=== PATIENT | female | born 1950 | race Caucasian/White ===

== ENCOUNTER 2016-08-18 05:39 | Inpatient (IN) | payer MEDICARE, OTHER ==
[2016-07-20] MEDS: Lactated Ringer's 1,000 ML IV SCH (13:04)
[2016-07-21] MEDS: Sodium Chloride LOK Flush 10 mL Syringe IVFLUSH SCH ×2 (00:30→08:30)
[2016-07-21] MEDS: Lactated Ringer's 1,000 ML IV SCH (01:34)
[2016-08-18] VITALS (18 sets, daily range): BP systolic 111–166; BP diastolic 44–91; PULSE 43–98; RESP 10–19; O2SAT 94–100
[~2016-08-18] VITALS: Ht 162.6 cm; Wt 105.7 kg
[2016-08-18] MEDS: Lactated Ringer's 1,000 ML IV SCH ×3 (05:00→07:24)
[~2016-08-18 05:39] MED LIST: ACET325T51 PO; ACYC400T2 PO; ASPI-973 PO; CeFAZolin Inj 2 GM in IV Premix 1 EACH IV SCH; DICL75TA6 PO; FEXO180T85 PO; LEVO75TA4 PO; MULT-1018 PO; TRAZ-115 PO; Vancomycin Dose per Pharmacist XX ONE; vit b complex PO; vit c PO
[2016-08-18] MEDS ORDERED: CeFAZolin 2 Gm/50 mL D5W IV Premix IV ONE (06:00)
[2016-08-18] MEDS ORDERED: Vancomycin Inj 1,000 MG in IV Premix 1 EACH IV ONE (06:00)
[2016-08-18] MEDS ORDERED: Ropivacaine-PF 0.5% 30 mL Inj INFILTRATE ONE (07:30)
[2016-08-18] MEDS ORDERED: Atropine 0.4 mg/mL Inj IVPUSH PRN (08:15)
[2016-08-18] MEDS ORDERED: EPHEDrine Sulfate 50 mg/mL Inj IVPUSH PRN (08:15)
[2016-08-18] MEDS ORDERED: Dexamethasone 4 mg/mL Inj IVPUSH PRN (08:15)
[2016-08-18] MEDS ORDERED: hydrALAZINE 20 mg/mL Inj IVPUSH PRN (08:15)
[2016-08-18] MEDS ORDERED: Phenylephrine 10,000 mCg/mL Inj IVPUSH PRN (08:15)
[2016-08-18] MEDS ORDERED: MetoCLOpramide 5 mg/mL 2 mL Inj IVPUSH PRN (08:15)
[2016-08-18] MEDS ORDERED: fentaNYL-PF 50 mCg/mL 2 mL Inj IVPUSH PRN (08:15)
[2016-08-18] MEDS ORDERED: Lactated Ringer's 500 ML IV PRN (08:15)
[2016-08-18] MEDS ORDERED: Lactated Ringer's 1,000 ML IV SCH (08:15)
[2016-08-18] MEDS ORDERED: Labetalol 5 mg/mL 4 mL Inj IV PRN (08:15)
--- NOTE | 2016-08-18 08:17 | PCM.HPANE ---
Patient Data Surgeon Admitting Provider: Attending Provider:Blue San DO Primary Care Physician:Tigist Minaya PA-C Other Provider:Wilfrid Max Anesthesia Reason for Visit Right Hip Arthritis Ht/WT & BMI Height (Feet): 5 Height (Inches): 4.00 Weight (Kilograms): 105.7 Body Mass Index 39.00 Allergies Coded Allergies: codeine (Verified Adverse Reaction, Severe, VOMITING, 02/26/16) latex (Verified Adverse Reaction, Severe, ITCHING, 02/26/16) Past Anesthesia History Anesthesia History: Denies:: Anesthesia Reactions, Malignant Hyperthermia Diabetes History Hx Diabetes?: No MRSA MRSA: No Medications Blood Thinner: Aspirin Home Meds Incl Beta Esvin: No Reported Medications Acetaminophen 325 Mg [id number] Mg PO Q4H PRN For Fever Ref 0 08/14/16 Diclofenac ER 75 Mg [id number] Mg PO BID 08/14/16 Aspirin 81 Mg [id number] Mg PO DAILY Ref 0 08/14/16 [vit c] No Conflict Check Po Daily 03/02/16 [vit b complex] No Conflict Check Po Daily 03/02/16 Multivitamin (Multi Vitamin Daily)1 Each Tablet1 Each PO DAILY 30 Days Ref 0 03/02/16 Fexofenadine (Sally Allergy)180 Mg [id number] Mg PO DAILY PRN PRN Ref 0 02/26/16 Acyclovir 400 Mg [id number] Mg PO TID X 7 DAYS PRN PRN Ref 0 02/26/16 Trazodone 50 Mg [id number] Mg PO HS PRN PRN Ref 0 02/26/16 Levothyroxine 75 Mcg [id number] Mcg PO DAILY Ref 0 02/26/16 History History of ENT Problems?: Yes HEENT History: Positive for:: Sinus Problem (ENVIRONMENTAL ALLERGIES) Denies:: Hearing Problem (S/P EXC CHOLESTOMA X3) Hx of Heart Problems?: Yes Cardiovascular History: Denies:: Hypertension Hx of Respiratory Problem?: Yes Respiratory History: Denies:: Use of C-PAP Machine (SNORES) Hx Neurologic Problems?: Yes Hx of GI Problems?: No Hx of Problems?: No Female Hx: Positive for:: Problems with Breasts? (S/P RT BREAST BX,LUMPECTOMY FOR CA) Denies:: Currently Pelvic Inflammatory (HX HERPES LABIALIS) Skin History: Denies:: History Skin Disorders? Pressure Ulcers Hx Musculoskeletal Problems?: Yes Musculoskeletal History: Positive for:: Degenerative Joint (LT KNEE, R HIP) Joint Replacement (L KNEE, R HIP 08/25) Osteoarthritis Hx of Psycho/Social Problems?: No Hx Surgeries?: Yes (BTL,RT BREAST BX/LUMPECTOMY,EXC CHOLESTOMA EAR X3) Hx Any Other Health Problems?: Yes Other History: Positive for:: Cancer (RT BREAST) Thyroid Disease Denies:: Endocrine Disease Hospitalization History Blood Transfusions: Denies:: Blood Transfusions Hx Diabetes: No Hx Alcohol Use: Yes ("SOCIAL") Smoking Status: Never Smoker Have You Smoked inLast 12 mo: No Stop/Bang S-Snoring: Do You Snore Loudly: Yes T-Tired: feel tired, fatigued: Yes O-Obsered: Observed not breath: No P-Blood Pressure: treated: No B- Body Mass Index > 35 kg/m2: Yes A- Age over 50: Yes N- Neck Large Circumference: Yes G- Gender Male: No JOANNE Total Score: 5 JOANNE Category 2: Yes Risk Assessment Category Category 1A: Patient has history of documented sleep apnea, and HAS NOT received any narcotic, sedative or anesthesia administration during this stay. Category 1B: Patient has history of documented sleep apnea, and HAS received any narcotic , sedative or anesthesia administration during this stay Category 2: Patient has SUSPECTED Obstructive Sleep Apnea, and HAS received any narcotic , sedative or anesthesia administration during this stay. Category 3: Patient has SUSPECTED Obstructive Sleep Apnea and HAS NOT received narcotic, sedative or anesthesia administration during this stay. Category 4: Outpatient in Procedural Areas with known sleep apnea or who screen positive for High Risk via the STOP/BANG questionnaire. Exam Exam Vital Signs Vital Signs Date Time Temp Pulse Resp B/P Pulse Ox O2 Delivery O2 Flow Rate FiO2 08/18/16 06:13 36.7 61 16 148/82 96 Room Air General Appearance: Alert, Oriented X3, Cooperative, No Acute Distress HEENT/AIRWAY: MP 2, Neck Movement (FROM), Mouth Opening (3 FBMO) Lungs: Normal Air Movement Heart: Regular Rate/Rhythm Meds/Labs/Diagnostics Admission Meds Current Medications Lactated Ringer's 1,000 ml @ 10 mls/hr Q24H IV Last administered on 08/18/16t 05:13; Start 08/18/16 at 05:00; Stop 08/22/16 at 08:59 Vancomycin HCl/ Dextrose/Premix (Vancomycin Inj/ IV Premix) 200 ml @ 133.333 mls/hr OT ONCE IV Last administered on 08/18/16t 06:58; Start 08/18/16 at 06: 00; Stop 08/18/16 at 07:29 Plan Impression Patient chart reviewed, patient interviewed and anesthestic plan with risks, benefits, and alternatives discussed, and informed consent obtained. NPO Status: 08/17 at 1999 ASA Physical Status: ASA3 Severe Disease Anesthetic Plan: SAB Bene/Risks/Altern/Consents: Yes HP Complete Prior to Induction: Yes Other BMI 40 Blue Hurley MD Aug 18, 2016 07:07
[2016-08-18] MEDS ORDERED: Lactated Ringer's 1,000 ML IV ONE ×2 (09:12→12:08)
[2016-08-18] MEDS ORDERED: Polyethylene Glycol (PEG) 17 Gm Powder PO PRN (09:50)
[2016-08-18] MEDS ORDERED: Ondansetron 2 mg/mL 2 mL Inj IVPUSH PRN (09:50)
[2016-08-18] MEDS ORDERED: Magnesium Hydroxide 10 mL Oral Concentration PO PRN (09:50)
[2016-08-18] MEDS ORDERED: diphenhydrAMINE 25 mg Capsule PO PRN (09:50)
[2016-08-18] MEDS ORDERED: HYDROcodone-APAP 7.5-325 mg Tablet PO PRN (09:50)
[2016-08-18] MEDS ORDERED: HYDROmorphone 1 mg/mL Inj IVPUSH PRN (09:50)
[2016-08-18] MEDS: Ondansetron 2 mg/mL 2 mL Inj IVPUSH PRN ×2 (10:20→10:44)
--- NOTE | 2016-08-18 10:26 | OP ---
[address] [address] OPERATIVE REPORT PATIENT: RANDI SORIA : 1950 MR#: [id number] ADMIT: 08/18/2016 JOB ID: [id number] DATE OF SURGERY: 08/18/2016 PREOPERATIVE DIAGNOSIS(ES): Right hip degenerative joint disease. POSTOPERATIVE DIAGNOSIS(ES): Right hip degenerative joint disease. PROCEDURE: Right total hip arthroplasty. SURGEON: Blue San DO. AUTOMATION TECHNOLOGIST: Cony Arreaga PA-C. INDICATIONS: The patient is a 65-year-old female with right hip severe degenerative arthritis who had failed conservative measures and wished to proceed with a right total hip arthroplasty. We discussed the risks, benefits, and possible complications of surgery, including, but not limited to injury to nerves and vessels, infection, bleeding, incomplete relief of symptoms, stiffness, need for additional procedures. All questions were answered and she wished to proceed. A special education assistant was required for the successful completion of this procedure. PROCEDURE IN DETAIL: The patient was brought to the operating room. She was given a preoperative antibiotic and spinal anesthetic, placed comfortably into the lateral decubitus position. The right hip was sterilely prepped and draped. An incision was made centered over the greater trochanter in line with the femur. Dissection was carefully carried through subcutaneous tissue. Electrocautery was used for hemostasis. A split was then made in the iliotibial band in line with the skin incision and a Charnley retractor was then placed. A split was then made in the gluteus medius between the junction of the anterior 1/3 and posterior 2/3, and the anterior sleeve of tissue was released off of the trochanter leaving a cuff of tissue for repair. This was taken to a point just distal to vastus tubercle. A small triangular portion of capsule was then removed and the hip was then surgically dislocated. A provisional neck cut was made about a fingerbreadth above the level of lesser trochanter. Next, the femur was prepared beginning with a box osteotome and the canal seeker. This was then broached sequentially up to a size 4, which had excellent fit and fill. A calcar planer was used to smooth the top of the femur. Attention was then directed towards the acetabulum. Anterior and posterior acetabular retractors were placed at the 3 o'clock and 9 o'clock positions, respectively. Next, the pulvinar was removed and the labrum was also removed. The hip was then reamed sequentially up to a size 51 taking care to ensure the appropriate abduction and anteversion. A 51 trial was placed. It seemed to fit quite nicely and therefore, we elected to place a DePuy [place] 52 cup. The bony surfaces washed and dried. The cup was impacted into position, further secured with a single superior dome screw. Trials were then performed with the 52 + 4 liner and 4 stem with a 36 + 1.5 head. This seemed to recreate her [place] anatomy quite nicely, allowed for full excellent range of motion with great stability and some shuck with equal leg lengths. These components were impacted into position with the Tri-Lock size 4 standard stem and a 36 + 1.5 ceramic head with a 36 x 52 Ultrex liner. The wound was irrigated and then closed with #5 Ethibond to repair the capsule and to repair the gluteus medius. The remainder of the gluteus medius and vastus lateralis repaired with #1 Surgilon. The iliotibial band was repaired with #1 Surgilon and 0 Vicryl. The subcu was closed with 2-0 Vicryl and V-Loc, and the skin was closed with a subcuticular 3-0 V-Loc suture with Steri-Strips. Naropin was added as an adjunct local anesthetic. Sterile dressings were applied. The patient tolerated the procedure well. Blood loss was 150 cc. POSTOPERATIVE PROTOCOL: Will have the patient weight bear to tolerance, use a walker for ambulation. Will plan to use Lovenox for DVT prophylaxis and Swink for pain.
--- NOTE | 2016-08-18 10:39 | DRSVH ---
PROCEDURE: X-RAY PELVIS W/LAT HIP (RT) ([id number]) INDICATIONS: post op TECHNIQUE: AP pelvis and lateral view of the right hip acquired. COMPARISON: [facility], , XR PELVIS W LATERAL HIP RT, 07/20/2016, 10:17. FINDINGS: Bones: Patient is status post right hip arthroplasty, with hardware components in expected positions . The hip joint appears congruent. The visualized bony structures appear intact. Soft tissues: Overlying postoperative changes are noted. No suspicious soft tissue densities. IMPRESSION: Interval right hip arthroplasty. Dictated by: Cielo West M.D. on 08/18/2016 at 10:37 Approved by: Cielo West M.D. on 08/18/2016 at 10:37
[2016-08-18 11:00] LABS: APPEARANCE,URINE CLEAR (CLEAR,HAZY); COLOR,URINE STRAW (YELLOW)
[2016-08-18 11:01] LABS: OCCULT BLOOD,URINE NEGATIVE (NEGATIVE); PH,URINE 6.5 (5.0-8.0); UROBILINOGEN,URINE NORMAL (NORMAL)
[2016-08-18] MEDS ORDERED: hydrOXYzine Inj 25 MG/1 mL SDV IM ONE ×3 (11:15→13:30)
--- NOTE | 2016-08-18 11:16 | PCM.ANEP1 ---
Post Anesthesia Phase 1 PACU Phase 1 Assessment Vital Signs Vital Signs Date Time Temp Pulse Resp B/P Pulse Ox O2 Delivery O2 Flow Rate FiO2 08/18/16 11:00 15 98 08/18/16 10:45 46 16 143/67 98 Room Air 08/18/16 10:30 43 14 149/73 96 Room Air 08/18/16 10:20 19 97 08/18/16 10:15 57 10 115/44 98 Room Air 08/18/16 10:10 61 14 124/70 98 Room Air 08/18/16 10:05 68 13 111/79 99 Room Air 08/18/16 10:00 36 70 15 127/60 100 Simple Mask 9 08/18/16 06:13 36.7 61 16 148/82 96 Room Air Anesthetic Administered: SAB Level of Alertness: Awake, talking SOOD's with Equal Strength: No (SAB still working) Pain: No Nausea or Vomiting: No Oxygen Delivery: Room Air Lungs: Normal Air Movement Dermatome Level: T12 (Symphysis Pubis) Blue Hurley MD Aug 18, 2016 11:16
--- NOTE | 2016-08-18 11:17 | PCM.ANEP2 ---
Post Anesthesia Evaluation ASA/CMS Post Anesthesia VS in Patient's Normal Range?: Yes Resp Stable; Airway Patent?: Yes CV Function & Hydration Stable: Yes Mental Status Recovered?: Yes Pain control Satisfactory?: Yes N/V Control Satisfactory?: Yes Blue Hurley MD Aug 18, 2016 11:17
[2016-08-18] MEDS: Sodium Chloride LOK Flush 10 mL Syringe IVFLUSH SCH (12:59)
[2016-08-18] MEDS: 0.9% Sodium Chloride 1,000 ML IV SCH ×2 (12:59→23:47)
[2016-08-18] MEDS: Ketorolac 15 mg/mL Inj IVPUSH PRN ×2 (13:17→19:45)
[2016-08-18] MEDS: Sodium Chloride LOK Flush 10 mL Syringe IV SCH (13:17)
--- NOTE | 2016-08-18 13:30 | NUR ---
POST-OP Patient received from PACU via a hospital bed. On room air. IVF ongoing. Complained of headache and nausea. Toradol IVP and Zofran 4 mg IVP administered. Denies SOB. RLE is tingly. Post spinal anesthesia. She is able to wiggle her toes. Dressing is CDI. IFC intact and draining to rigoberto colored UO. Oriented to room and call light. (Pls. refer to post-op grid for assessments).
[2016-08-18] MEDS ORDERED: fentaNYL-PF 50 mCg/mL 2 mL Inj ONE (13:37)
[2016-08-18] MEDS ORDERED: Phenylephrine 10,000 mCg/mL Inj ONE (14:29)
[2016-08-18] MEDS ORDERED: Propofol 10,000 mCg/mL 20 mL Inj ONE (14:29)
[2016-08-18] MEDS ORDERED: Bupiv-Spinal 0.75%/Dex 8.25% 2 mL Inj ONE (14:29)
[2016-08-18] MEDS: hydrOXYzine Pamoate 25 mg Capsule PO PRN (15:49)
[2016-08-18] MEDS ORDERED: Acyclovir 400 mg Tablet PO PRN (16:45)
[2016-08-18] MEDS: CeFAZolin Inj 2 GM in IV Premix 1 EACH IV SCH (17:15)
[2016-08-18] MEDS: Senna-Docusate 8.6-50 mg Tablet PO SCH (19:44)
[2016-08-19] MEDS: Sodium Chloride LOK Flush 10 mL Syringe IV SCH ×3 (00:30→18:07)
[2016-08-19] MEDS: CeFAZolin Inj 2 GM in IV Premix 1 EACH IV SCH (00:48)
--- NOTE | 2016-08-19 04:51 | NUR ---
Pain Pt remains in bed throughout shift, SCD bilaterally, foam wedge in place. No complaints of N/V, SOB, headache, or chest pain. Dilauded and toradol given for breakthrough pain when PO meds not available. Pt sleeping soundly and no further requests for pain medication. IV running NS at 100 ml/h. Will continue to monitor
[2016-08-19 05:27] VITALS: BP 128/72; PULSE 73; RESP 16; O2SAT 97
[2016-08-19] MEDS: 0.9% Sodium Chloride 1,000 ML IV SCH ×2 (05:50→15:50)
[2016-08-19 06:32] LABS: BASOPHILS % (AUTO) 0.1 % (0-3); EOSINOPHILS % (AUTO) 0.3 % (0-5); MONOCYTES % (AUTO) 17.7 % (4-12); Mean Corpuscular Hemoglobin 32.1 pg (27.0-35.0); Mean Corpuscular Volume 94.9 fL (81-100); NEUTROPHILS % (AUTO) 64.2 % (40-74); Platelet Count 256 bil/L (150-400)
--- NOTE | 2016-08-19 07:17 | PCM.PNORTH ---
Subjective Date of Service: Aug 19, 2016 Visit Information: Reason for Visit Right Hip Arthritis Surgery/Surgery Date RIGHT TOTAL HIP 08/18/16 Post-Op Day # Date of Admission: Aug 18, 2016 at 12:49 Hospital Day # Subjective Foundation awake and alert and sitting up in bed. No complaints of pain at this time. Patient is well positioned with abduction wedge in place. Discussed patient's performance with physical therapy and encouraged patient to get up today with physical therapy and pursue some gait with her frontwheel walker. Patient indicates she is going home to a relative's house initially were there are no steps and there is a 1 [address] present. Patient will ultimately go to her home with spouse as caregiver. Advised regarding discharge to home on postop day 3 and patient is understanding of this. Patient is very positive about her recent experience with her left knee surgery here at this hospital and is looking forward to a good course and a discharge to home on postop day 3. Postop General: No Complaints, No Shortness of Breath, No Chest Pain Pain Management: PO, IV Push Objective Exam Objective Orientation: Alert and oriented 3 and pleasant. Dressing: Interoperative dressing clean dry and intact. Wound: Wound not observed today Compartments: Thigh and calf are soft and nontender Mobility/sensation: Toe wiggle and sensation are intact in right lower extremity distally. Abduction wedge is in place. Addison: Present Drain: Absent Gait: Sit to stand with physical therapy yesterday on 08/18/2016. No gait yet as of this time. Vital Signs and I/O Vital Sign - Last Date Time Temp Pulse Resp B/P Pulse Ox O2 Delivery O2 Flow Rate FiO2 08/19/16 05:27 36.7 73 16 128/72 97 Nasal Cannula 2.00 Intake and Output 08/18/16 08/18/16 08/19/16 Cumulative From/Thru 15:00 23:00 07:00 07/21/16 16:16 - 08/19/16 06:45 Intake Total 2900 ml 1154 ml 2002 ml 6056 ml Output Total 525 ml 900 ml 1350 ml 2775 ml Balance 2375 ml 254 ml 652 ml 3281 ml Intake Oral 1154 ml 800 ml 1954 ml IV Total 2900 ml 1202 ml 4102 ml Output Urine Total 375 ml 900 ml 1350 ml 2625 ml Estimated Blood Loss 150 ml 150 ml # Bowel Movements 0 0 Lab & Micro Results Laboratory Tests Test 1/10/17 10:10 08/19/16 05:00 08/19/16 05:42 Urine Color Straw (YELLOW) Urine Appearance Clear (CLEAR,HAZY) Urine pH 6.5 (5.0-8.0) Urine Specific [place] 1.020 (1.003-1.035) Urine Protein Negativemg/dL (NEG,TRACE) Urine Glucose (UA) Negativemg/dL (NEGATIVE) Urine Ketones Negativemg/dL (NEGATIVE) Urine Occult Blood Negative (NEGATIVE) Urine Nitrite Negative (NEGATIVE) Urine Bilirubin Negative (NEGATIVE) Urine Urobilinogen Normalmg/dL (NORMAL) Urine Leukocyte Esterase Negative (NEGATIVE) Urine RBC 0-2/hpf (0-2) Urine WBC 0-5/hpf (0-5) Urine Epithelial Cells Occasional/hpf (NONE-MOD) Urine Crystals None seen (NONE SEEN) Urine Bacteria Few/hpf (NONE-FEW) Urine Hyaline Casts None/lpf (NONE) Urine Granular Casts None seen (NONE SEEN) Urine Waxy Casts None seen (NONE SEEN) Urine Red Blood Cell Casts None seen (NONE SEEN) Urine White Blood Cell Casts None seen (NONE SEEN) Urine Mucus Present (None Seen) Urine Trichomonas None seen (NONE SEEN) Urine Yeast None (NONE SEEN) Urinalysis Comment None Urine Culture Reflexed Not indicated White Blood Count 8.0th/mm3 (3.8-10.1) Red Blood Count 3.33mil/mm3 (3.90-5.20) Hemoglobin 10.7g/dL (12.0-15.6) Hematocrit 31.6% (35.0-46.0) Mean Corpuscular Volume 94.9fL (81-100) Mean Corpuscular Hemoglobin 32.1pg (27.0-35.0) Mean Corpuscular Hemoglobin Concent 33.9% (32.0-37.0) Red Cell Distribution Width 13.0% (12.3-15.4) Platelet Count 256bil/L (150-400) Neutrophils (%) (Auto) 64.2% (40-74) Lymphocytes (%) (Auto) 17.6% (14-46) Monocytes (%) (Auto) 17.7% (4-12) Eosinophils (%) (Auto) 0.3% (0-5) Basophils (%) (Auto) 0.1% (0-3) Sodium Level 139mEq/L (134-144) Potassium Level 4.1mEq/L (3.5-5.2) Chloride Level 105mEq/L (97-108) Carbon Dioxide Level 23mmol/L (18-29) Blood Urea Nitrogen 11mg/dL (8-27) Creatinine 0.40mg/dL (0.57-1.00) Estimat Glomerular Filtration Rate 229mL/min (>59) Glucose Level 125mg/dL (60-99) Calcium Level 8.5mg/dL (8.5-10.1) General Appearance: Alert, Oriented X3, Cooperative, No Acute Distress Extremities: No Compartment Syndrom Noted, Thigh & Calf Soft/Nontender Postop Sensory Motor: Distal Motor Intact, Movement in Toes, Distal Sensation Intact Activity: Activity per PT, Ambulate with PT (weightbearing as tolerated on the right lower extremity using front-wheeled walker.) Catheters: Urethral 2 Way Addison Assessment & Plan Plan Postop day # 1 from right total hip arthroplasty performed on 08/18/[address] Blue San. Weight bearing status: Weightbearing as tolerated on the right lower extremity Mobility aid: Front-wheeled walker Immobilization: None Precautions: Maintain abduction wedge between knees while in bed Physical therapy: Continue formal physical therapy for mobility, gait and safety. Pain control: Continue by mouth pain medications only if possible. Anticipated discharge medication is [place] 7.5. DVT prophylaxis: Continue Lovenox 40 mg subcutaneous daily 3 weeks postop with transition to ASA 3 25 mL by mouth twice a day for an additional 3 weeks postop totaling 6 weeks postoperative DVT prophylaxis. Wound care: Keep wound clean and dry and covered until seen in office in 2 weeks. Infectious DZ: None Addison: Present and working Dressing: Interoperative dressing is clean dry and intact. Drain: Absent Nursing: Nursing please discontinue Addison today on postop day 1 after her first therapy session. Use BSC if needed and safe mobility is achieved. 2-week follow-up: Follow-up in 2 weeks at [facility] on prearranged appointment with mid-level provider for wound check and suture removal. 6-week follow-up: Follow-up in 6 weeks at [facility] on prearranged appointment with Dr. Picco with AP pelvis and right crosstable lateral hip x-rays on arrival. Discharge plan: Anticipate discharge to a relative's home on postop day #3, . VTE Prophylaxis: Sub-Q Enoxaparin (Lovenox 40 mg subcutaneous daily 3 weeks postop with transition to ASA 325 mg EC by mouth twice a day for an additional 3 weeks postop totaling 6 weeks postoperative DVT prophylaxis.), SCDs ( bilateral SCDs while in bed.), KARLA Hose (bilateral thigh-high KARLA hose if sizing is available.) Jostin Reese PA-C Aug 19, 2016 07:17
[2016-08-19] MEDS: hydrOXYzine Pamoate 25 mg Capsule PO PRN ×4 (09:36→21:41)
[2016-08-19] MEDS: Senna-Docusate 8.6-50 mg Tablet PO SCH ×2 (09:36→21:41)
[2016-08-19 10:05] VITALS: BP 143/75; PULSE 74; RESP 18; O2SAT 98
[2016-08-19 14:08] VITALS: BP 130/70; PULSE 94; RESP 18; O2SAT 94
[2016-08-19 16:50] VITALS: BP 132/69; PULSE 86; RESP 18; O2SAT 96
--- NOTE | 2016-08-19 18:20 | NUR ---
Addison/Pain/Activity Pt's Addison removed at 1015 and pt able to void 200cc at 1100. Pain well controlled all day with PO medications Q4-5 hours, pt using call light when ready for medication. Pt able to get up with PT and staff to use restroom and understands hip precautions. Educated on using call light when needed to get up. Pt desats to low 90's when sleeping, so placed on 2L NC when sleeping. Sating fine on RA while awake. Pt has call light in reach, continue to monitor.
[2016-08-19 20:56] VITALS: BP 124/72; PULSE 92; RESP 18; O2SAT 97
[2016-08-20] MEDS: 0.9% Sodium Chloride 1,000 ML IV SCH ×3 (01:50→21:50)
[2016-08-20] MEDS: hydrOXYzine Pamoate 25 mg Capsule PO PRN ×5 (03:55→21:05)
[2016-08-20] MEDS: Sodium Chloride LOK Flush 10 mL Syringe IV SCH ×3 (03:55→16:30)
--- NOTE | 2016-08-20 04:20 | NUR ---
REST Patient resting comfortably, using call light appropriately for toileting assistance. Tolerating ambulation well, pain managed with PO pain medications q4-5h and Ice. Bed in low position, wheels locked. Call light within reach, intentional rounding qh.
[2016-08-20 05:27] VITALS: BP 137/76; PULSE 91; RESP 16; O2SAT 95
[2016-08-20 05:45] LABS: BASOPHILS % (AUTO) 0.2 % (0-3); EOSINOPHILS % (AUTO) 0.9 % (0-5); MONOCYTES % (AUTO) 17.1 % (4-12); Mean Corpuscular Hemoglobin 31.5 pg (27.0-35.0); Mean Corpuscular Volume 95.9 fL (81-100); NEUTROPHILS % (AUTO) 65.8 % (40-74); Platelet Count 236 bil/L (150-400)
[2016-08-20] MEDS: Senna-Docusate 8.6-50 mg Tablet PO SCH ×2 (08:57→21:05)
--- NOTE | 2016-08-20 09:00 | NUR ---
[facility] Signed
--- NOTE | 2016-08-20 13:03 | PCM.PNORTH ---
Subjective Date of Service: Aug 20, 2016 Visit Information: Reason for Visit Right Hip Arthritis Surgery/Surgery Date RIGHT TOTAL HIP 08/18/16 Post-Op Day # 2 Date of Admission: Aug 18, 2016 at 12:49 Hospital Day # Subjective Patient states she tried taking only half a pain pill over the past day or so and has had increased pain. She states she "learned my lesson." She states her pain is back to a reasonable level now. She has no concerns. Postop General: No Complaints, No Shortness of Breath, No Chest Pain Pain Management: PO, IV Push Objective Exam Objective Sitting up in chair, eating breakfast. Vital Signs and I/O Vital Sign - Last Date Time Temp Pulse Resp B/P Pulse Ox O2 Delivery O2 Flow Rate FiO2 08/20/16 09:12 Room Air 08/20/16 05:27 37.0 91 16 137/76 95 2.00 Intake and Output 08/19/16 08/19/16 08/20/16 Cumulative From/Thru 15:00 23:00 07:00 07/21/16 16:16 - 08/20/16 06:18 Intake Total 382 ml 1394 ml 800 ml 8632 ml Output Total 1700 ml 700 ml 5175 ml Balance 382 ml -306 ml 100 ml 3457 ml Intake Oral 1394 ml 800 ml 4148 ml IV Total 382 ml 4484 ml Output Urine Total 1700 ml 700 ml 5025 ml Estimated Blood Loss 150 ml # Bowel Movements 0 Lab & Micro Results Laboratory Tests Test 08/20/16 05:30 White Blood Count 10.1th/mm3 (3.8-10.1) Red Blood Count 3.17mil/mm3 (3.90-5.20) Hemoglobin 10.0g/dL (12.0-15.6) Hematocrit 30.4% (35.0-46.0) Mean Corpuscular Volume 95.9fL (81-100) Mean Corpuscular Hemoglobin 31.5pg (27.0-35.0) Mean Corpuscular Hemoglobin Concent 32.9% (32.0-37.0) Red Cell Distribution Width 12.9% (12.3-15.4) Platelet Count 236bil/L (150-400) Neutrophils (%) (Auto) 65.8% (40-74) Lymphocytes (%) (Auto) 15.8% (14-46) Monocytes (%) (Auto) 17.1% (4-12) Eosinophils (%) (Auto) 0.9% (0-5) Basophils (%) (Auto) 0.2% (0-3) Sodium Level 137mEq/L (134-144) Potassium Level 3.9mEq/L (3.5-5.2) Chloride Level 102mEq/L (97-108) Carbon Dioxide Level 25mmol/L (18-29) Blood Urea Nitrogen 10mg/dL (8-27) Creatinine 0.31mg/dL (0.57-1.00) Estimat Glomerular Filtration Rate 307mL/min (>59) Glucose Level 129mg/dL (60-99) Calcium Level 8.3mg/dL (8.5-10.1) Result Diagram: 08/20/1630 08/20/16 0530 General Appearance: Alert, Oriented X3, Cooperative, No Acute Distress Extremities: Distal Pulses Palpable, No Compartment Syndrom Noted, Tenderness/ Swelling Noted (Swelling and ecchymosis present proximally to incision) Postop Sensory Motor: Distal Motor Intact, Movement in Toes, Distal Sensation Intact, NVI Distally SURGICAL WOUND : Wound Location/Description Perioperative dressing changed to an island dressing. 3 strips were intact. Incision appears to be healing well, absent of erythema or drainage. There is significant ecchymosis in the most proximal portion of the incision spreading up through the hip region. Patient also has 2 blisters approximately 1 cm x 0.5 cm at the most distal portion of the ecchymosis presumably from swelling. Incision General Appearance: Steri Strips, Well Approximated, Incision Healing Dressing & Drainage Status: Changed, No Purulent Drainage Activity: Activity per PT, Ambulate with PT (weightbearing as tolerated on the right lower extremity using front-wheeled walker.) Assessment & Plan Impression Postop day #2 right total hip arthroplasty Problems: Plan Weightbearing: Weightbearing as tolerated with a walker DVT prophylaxis: Lovenox 40 mg 3 weeks followed by aspirin 325 mg for an additional 3 weeks for a total of 6 weeks of DVT prophylaxis. Physical therapy for transfers, progressive ambulation, strengthening Wound care: Perioperative dressing was changed to an island dressing today. Change as needed in the future. Analgesia: Continue oral pain management Discharge plan: Discharge home in 1-2 days. She was reminded of her hip precautions Follow-up plan: In 2 weeks at [facility] with PEE for wound check and at [address] San with x-rays VTE Prophylaxis: Sub-Q Enoxaparin (Lovenox 40 mg subcutaneous daily 3 weeks postop with transition to ASA 325 mg EC by mouth twice a day for an additional 3 weeks postop totaling 6 weeks postoperative DVT prophylaxis.), SCDs ( bilateral SCDs while in bed.), KARLA Hose (bilateral thigh-high KARLA hose if sizing is available.) Pascale Brar PA-C Aug 20, 2016 13:03
[2016-08-20 13:23] VITALS: BP 119/64; PULSE 87; RESP 16; O2SAT 97
--- NOTE | 2016-08-20 14:53 | NUR ---
Social Work: Initial Assessment: EMR Reviewed: See Initial Assessment: Excels[facility] Cutter met with patient at bedside to complete initial assessment, SW role reviewed and discuss discharge planning. Patient was alert and oriented x3. Patient confirmed that her NOK is her daughter, Anne Chavez [phone]. Patient also confirmed that her PCP is Rei, [facility]. Patient does not have VA benefits or LTC Insurance. Patient does not have any HH or SNF history. Patient lived home independently in a single level home. Patient used a walker for mobilization. Patient was independent with ADL's. Patient does not have a re-admit score at the current time. Patient does not have any social work needs at the current time. Patient plans to discharge home with her brother Baudilio Wilson and her sister Abimbola Juarez will pick her up when discharged. SW will continue to follow. Plan: Patient will likely discharge home with brother and she does not have any social work needs at the current time. Patient sister Abimbola Juarez will pick her up when discharged. Excelsior Cutter will continue to follow. Brandi Renee LMSW, [facility] Addendum: 08/20/16 at 1517 by BRANDI LUQUE Amended: Links added.
--- NOTE | 2016-08-20 17:54 | NUR ---
pain good pain control, pt decided to try taking 10mg Oxycodone and she said she did much better with the increased dose, it made ambulating much easier
[2016-08-20 19:30] VITALS: BP 128/74; PULSE 90; RESP 20; O2SAT 99
[2016-08-21] MEDS: Sodium Chloride LOK Flush 10 mL Syringe IV SCH ×2 (01:00→08:17)
[2016-08-21] MEDS: hydrOXYzine Pamoate 25 mg Capsule PO PRN ×3 (01:01→10:57)
--- NOTE | 2016-08-21 02:46 | NUR ---
Pain VSS and ORTHOS WNL.Dressing CDI.Up with SBA and FWW and moving well.Pain controlled with po analgesia.I&O qs.Sleeping intermittently and resting comfortably at this time.Will cont. to monitor.
[2016-08-21 04:34] VITALS: BP 147/83; PULSE 99; RESP 20; O2SAT 97
--- NOTE | 2016-08-21 07:41 | PCM.PNORTH ---
Subjective Date of Service: Aug 21, 2016 Visit Information: Reason for Visit Right Hip Arthritis Surgery/Surgery Date RIGHT TOTAL HIP 08/18/16 Post-Op Day # Date of Admission: Aug 18, 2016 at 12:49 Hospital Day # Subjective Found patient sleeping and easily awakened. Patient was well positioned in bed but without abduction wedge. Discussed discharge today with patient and she is in favor of this. On examination of her wound today numerous fracture blisters were found both open and not open as well as occlusive dressing in place that had not been trimmed. I have discussed with patient today trying to get her into the office in approximately 1 week to check her wounds. Postop General: No Complaints, No Shortness of Breath, No Chest Pain, Good Appetite Pain Management: PO Objective Exam Objective Orientation: Alert and oriented 3 and pleasant. Dressing: Interoperative dressing had been changed island-type dressing without the ends trimmed. Wound: On examination wound was beginning to macerate. 5-6 large fracture blisters are noted about the wound and the posterior aspect of the wound. Somewhat unroofed likely by moving about in bed and others were intact. Fracture blisters were unroofed and covered with Xeroform and then Tegaderm. Island dressing was removed and replaced with larger islands that were trimmed and shingled for ventilation. Compartments: Calf and thigh were soft and nontender. Mild swelling is noted about the right thigh. Mobility/sensation: Dasilva and sensation were intact in right lower extremity distally Abduction wedge: Abduction wedge was found at bedside and this was reinstalled this morning prior to bed mobility for bandage changing. KARLA hose: Absent Addison: Absent Drain: Absent Gait: Gait 125 feet with physical therapy on 08/20/2016. Patient has received recommendation for discharge to home. Vital Signs and I/O Vital Sign - Last Date Time Temp Pulse Resp B/P Pulse Ox O2 Delivery O2 Flow Rate FiO2 08/21/16 04:34 36.8 99 20 147/83 97 Room Air 08/20/16 05:27 2.00 Intake and Output 08/20/16 08/20/16 08/21/16 Cumulative From/Thru 15:00 23:00 07:00 07/21/16 16:16 - 08/21/16 05:51 Intake Total 1176 ml 600 ml 77804 ml Output Total 500 ml 950 ml 6625 ml Balance 676 ml -350 ml 3783 ml Intake Oral 1176 ml 600 ml 5924 ml IV Total 4484 ml Output Urine Total 500 ml 950 ml 6475 ml Estimated Blood Loss 150 ml # Bowel Movements 0 Result Diagram: 08/20/1652908/20/16529 General Appearance: Alert, Oriented X3, Cooperative, No Acute Distress Extremities: No Compartment Syndrom Noted, Thigh & Calf Soft/Nontender Postop Sensory Motor: Movement in Toes, Distal Sensation Intact SURGICAL WOUND : Incision General Appearance: Steri Strips, Well Approximated, Incision Healing Dressing & Drainage Status: Changed, No Purulent Drainage Activity: Activity per PT, Ambulate with PT (weightbearing as tolerated on the right lower extremity using front-wheeled walker.) Catheters: None Assessment & Plan Impression Patient has performed well with physical therapy and is in good position for discharge to home today. She has had mild complication with several large fracture blisters about her wound which were unroofed today and covered with Xeroform and Tegaderm. Her dressings were changed again today as well. Problems: Plan Postop day # 3 from right total hip arthroplasty performed on 08/18/[address] Blue San. Weight bearing status: Weightbearing as tolerated on the right lower extremity Mobility aid: Front-wheeled walker Immobilization: None Precautions: Maintain abduction wedge between knees while in bed Physical therapy: Continue formal physical therapy for mobility, gait and safety. Pain control: Continue pain control with oxycodone 5 mg 2 and Vistaril 25 mg with anticipation of discharge on these medications. DVT prophylaxis: Continue Lovenox 40 mg subcutaneous daily 3 weeks postop with transition to ASA 3 25 mL by mouth twice a day for an additional 3 weeks postop totaling 6 weeks postoperative DVT prophylaxis. Wound care: Keep wound clean and dry and covered until seen in office in 2 weeks. Arrange follow-up in the office with mid-level provider within 5-7 days of discharge for wound check secondary to fracture blisters. Infectious DZ: None Addison: Absent Dressing: Postoperative dressing had been changed and was soiled and found to be untrimmed causing maceration of wound. This dressing was changed to island- type with trimmed edges for ventilation as well as Xeroform and Tegaderm covering fracture blisters Drain: Absent Nursing: Nursing please send patient home with additional bandages in supplies if needed. Please change dressings as needed prior to discharge. 1-week follow-up: Follow-up in one week at [facility] would recommend orthopedic clinic with mid-level provider for wound check and bandage change regarding wound maceration and fracture blisters. 2-week follow-up: Follow-up in 2 weeks at [facility] orthopedic clinic on prearranged appointment with mid-level provider for wound check and suture removal. 6-week follow-up: Follow-up in 6 weeks at [facility] orthopedic clinic on prearranged appointment with Dr. San with AP pelvis and right crosstable lateral hip x-rays on arrival. Discharge plan: Discharge to relative's home today on 08/21/2016 with family as caregivers.. VTE Prophylaxis: Sub-Q Enoxaparin (Lovenox 40 mg subcutaneous daily 3 weeks postop with transition to ASA 325 mg EC by mouth twice a day for an additional 3 weeks postop totaling 6 weeks postoperative DVT prophylaxis.), SCDs ( bilateral SCDs while in bed.), KARLA Hose (bilateral thigh-high KARLA hose if sizing is available.) Jostin Reese PA-C Aug 21, 2016 07:41
--- NOTE | 2016-08-21 07:45 | PCM.DIORTH ---
Ortho Discharge Instruction Date of Service: Aug 21, 2016 Dates of Hospitalization Date of Hospital Admission Aug 18, 2016 at 12:49 Providers Admitting Physician: Blue San DO Primary Care Physician: Tigist Minaya PA-C Attending Physician: Blue San DO Diet Discharge Diet: No restrictions Activity Discharge Activity-General: Try not to overdue, Be up and about, Balance rest and activity, Ice incision 3-5 time/day for 20min, Activity as pain allows, Activity as energy allows, No driving while taking narcotic Right Lower Extremity: Weight Bearing as tolerated Discharge Assist Device: Front Wheeled Walker Dressing and Incisional Care Discharge Dressing Care: Keep dressing clean, dry & intact, Change soiled dressing Discharge Hygiene: No showering, DO NOT soak incision under water, NO bathtub, hot tub or whirlpool Additional Instructions Discharge Instructions Postop day # 3 from right total hip arthroplasty performed on 08/18/[address] Blue San. Weight bearing status: Weightbearing as tolerated on the right lower extremity Mobility aid: Front-wheeled walker Immobilization: None Precautions: Maintain abduction wedge between knees while in bed Physical therapy: Continue formal physical therapy for mobility, gait and safety. Pain control: Continue pain control with oxycodone 5 mg 2 and Vistaril 25 mg with anticipation of discharge on these medications. DVT prophylaxis: Continue Lovenox 40 mg subcutaneous daily 3 weeks postop with transition to ASA 3 25 mL by mouth twice a day for an additional 3 weeks postop totaling 6 weeks postoperative DVT prophylaxis. Wound care: Keep wound clean and dry and covered until seen in office in 2 weeks. Arrange follow-up in the office with mid-level provider within 5-7 days of discharge for wound check secondary to fracture blisters. Infectious DZ: None Addison: Absent Dressing: Postoperative dressing had been changed and was soiled and found to be untrimmed causing maceration of wound. This dressing was changed to island- type with trimmed edges for ventilation as well as Xeroform and Tegaderm covering fracture blisters Drain: Absent Nursing: Nursing please send patient home with additional bandages in supplies if needed. Please change dressings as needed prior to discharge. 1-week follow-up: Follow-up in one week at [facility] would recommend orthopedic clinic with mid-level provider for wound check and bandage change regarding wound maceration and fracture blisters. 2-week follow-up: Follow-up in 2 weeks at [facility] orthopedic clinic on prearranged appointment with mid-level provider for wound check and suture removal. 6-week follow-up: Follow-up in 6 weeks at [facility] orthopedic clinic on prearranged appointment with Dr. San with AP pelvis and right crosstable lateral hip x-rays on arrival. Discharge plan: Discharge to relative's home today on 08/21/2016 with family as caregivers.. Follow Up Plan Follow Up Plan Follow-up will be at 1 week, 2 weeks, 6 weeks and 12 weeks postoperatively. Patient will be seen when necessary in the interim. Follow-up Provider (F9): Blue San DO Follow-up appointment: Days (follow-up 5-7 days postop with mid-level provider for wound check and bandage change.), Weeks (follow-up at 2 weeks postop with mid-low provider for wound check and suture removal.) Call your provider for: Fever, Chills, Shortness of breath, Vomitting, Drainage at incision Jostin Reese PA-C Aug 21, 2016 07:45
[2016-08-21] MEDS ORDERED: DOCU-41 PO (07:50)
[2016-08-21] MEDS ORDERED: HYDR-3797 PO (07:50)
[2016-08-21] MEDS ORDERED: ASPI-973 PO (07:50)
[2016-08-21] MEDS: 0.9% Sodium Chloride 1,000 ML IV SCH (07:50)
[2016-08-21] MEDS ORDERED: ENOX40DI8 SUBQ (07:50)
[2016-08-21] MEDS ORDERED: OXYC5TAB72 PO (07:50)
--- NOTE | 2016-08-21 07:57 | PCM.DC.ORT ---
Discharge Summary Date of Service: Aug 21, 2016 Date of Hospital Admission: Aug 18, 2016 at 12:49 Date of Surgery: Aug 18, 2016 Date of Discharge: Aug 21, 2016 Reason for Hospitalization: Severe right hip osteoarthritis Procedures Performed: Right total hip arthroplasty Hospital Course: Patient was admitted through the preoperative care unit on 08/18/2016 upon processing was taken to the operating room where her procedure was performed without incident. Upon awakening patient was taken to recovery room in upon recovery from anesthesia and was taken to the orthopedic care unit where she participated well with formal physical therapy and received a recommendation for discharge to home. Problems: (1) Hip arthritis Status: Acute ICD Code: M19.90 Disposition: Discharged to home with family as caregivers. Orthopedic Follow up Plan: In Six Weeks in my clinic (follow up in 6 weeks' [facility] orthopedic clinic with Dr. Blue Randolph with AP pelvis and right cross table lateral hip x-rays on arrival.) Discharge Instructions: Postop day # 3 from right total hip arthroplasty performed on 08/18/[address] Blue San. Weight bearing status: Weightbearing as tolerated on the right lower extremity Mobility aid: Front-wheeled walker Immobilization: None Precautions: Maintain abduction wedge between knees while in bed Physical therapy: Continue formal physical therapy for mobility, gait and safety. Pain control: Continue pain control with oxycodone 5 mg 2 and Vistaril 25 mg with anticipation of discharge on these medications. DVT prophylaxis: Continue Lovenox 40 mg subcutaneous daily 3 weeks postop with transition to ASA 3 25 mL by mouth twice a day for an additional 3 weeks postop totaling 6 weeks postoperative DVT prophylaxis. Wound care: Keep wound clean and dry and covered until seen in office in 2 weeks. Arrange follow-up in the office with mid-level provider within 5-7 days of discharge for wound check secondary to fracture blisters. Infectious DZ: None Addison: Absent Dressing: Postoperative dressing had been changed and was soiled and found to be untrimmed causing maceration of wound. This dressing was changed to island- type with trimmed edges for ventilation as well as Xeroform and Tegaderm covering fracture blisters Drain: Absent Nursing: Nursing please send patient home with additional bandages in supplies if needed. Please change dressings as needed prior to discharge. 1-week follow-up: Follow-up in one week at [facility] would recommend orthopedic clinic with mid-level provider for wound check and bandage change regarding wound maceration and fracture blisters. 2-week follow-up: Follow-up in 2 weeks at [facility] orthopedic clinic on prearranged appointment with mid-level provider for wound check and suture removal. 6-week follow-up: Follow-up in 6 weeks at [facility] orthopedic clinic on prearranged appointment with Dr. San with AP pelvis and right crosstable lateral hip x-rays on arrival. Discharge plan: Discharge to relative's home today on 08/21/2016 with family as caregivers.. Management Plan: Patient will be seen in 1 week, 2 weeks, 6 weeks and 12 weeks postoperatively. Patient will be seen when necessary in the interim. ([vit b complex]) PO DAILY ([vit c]) PO DAILY Acetaminophen (Acetaminophen) 325 Mg Tablet 325 MG PO Q4H PRN PRN For Fever Acyclovir (Acyclovir) 400 Mg Tablet 400 MG PO TID X 7 DAYS PRN PRN PRN Aspirin (Aspirin) 81 Mg Tablet 325 MG PO BID Diclofenac ER (Diclofenac ER) 75 Mg Tablet 75 MG PO BID Docusate Sodium (Colace) 100 Mg Capsule 100 MG PO BID Enoxaparin Sodium (Enoxaparin Sodium) 40 Mg/0.4 Ml Syringe 40 MG SUBQ DAILY Fexofenadine (Sally Allergy) 180 Mg Tablet 180 MG PO DAILY PRN PRN PRN Hydroxyzine Pamoate (HydrOXYzine Pamoate) 25 Mg Capsule 25 MG PO Q4-6H PRN PRN For Spasm and/or Restlessness Levothyroxine (Levothyroxine) 75 Mcg Tablet 75 MCG PO DAILY Multivitamin (Multi Vitamin Daily) 1 Each Tablet 1 EACH PO DAILY Trazodone (Trazodone) 50 Mg Tablet 25-100 MG PO HS PRN PRN PRN oxyCODONE (oxyCODONE) 5 Mg Tablet 5-10 MG PO Q4H PRN PRN For Severe Pain Jostin Reese PA-C Aug 21, 2016 07:57
[2016-08-21] MEDS: Senna-Docusate 8.6-50 mg Tablet PO SCH (08:16)
--- NOTE | 2016-08-21 11:05 | NUR ---
Discharge Pt was d/c'd from room 1018 at 1105 home with family. VSS. Discharge teaching and wound care instructions done with pt. Hard copy of RX with pt. IV d/c'd intact. Dressing was C/D/I at discharge. Dressing was changed this morning with PA. Extra supplies sent home with pt. Pt to f/u with Herminia zhou in 1 week regarding incision site.
== END 2016-08-21 11:05 | disposition home or self-care (01) | DRG 470 ==
LOC: SAS 05:39 → OSC 12:49
PROVIDERS: ADMIT Orthopaedic Surgery; ATTEND Orthopaedic Surgery
PROC: 0SR904A Replacement of Right Hip Joint with Ceramic on Polyethylene Synthetic Substitute, Uncemented, Open Approach (ICD-10-PCS; principal; 2016-08-18 07:30)
DX: M16.11 Unilateral primary osteoarthritis, right hip (principal); E07.9 Disorder of thyroid, unspecified